=== PATIENT | male | born 1995 | race African-American/Black ===

== ENCOUNTER 2018-10-27 23:01 | Emergency (ER) | payer MEDICAID, OTHER ==
[~2018-10-27] VITALS: Ht 182.9 cm; Wt 82.0 kg
[2018-10-28] MEDS ORDERED: SODIUM CHLORIDE 0.9% 1,000 ML IV ONE (01:03)
[2018-10-28] MEDS ORDERED: BACITRACIN ZINC OINT UDPKT TOP ONE (01:15)
[2018-10-28] MEDS ORDERED: LIDOCAINE 1%/EPI 1:100,000 10 ML VIAL IJ ONE (01:15)
[2018-10-28] MEDS ORDERED: LIDOCAINE HCL/EPINEPHRINE 1%-EPI 1:100,000 20 ML VIAL ONE (02:09)
[2018-10-28] MEDS ORDERED: AMOXICILLIN/POTASSIUM CLAVULANATE 875/125MG TAB PO ONE (03:00)
[2018-10-28 03:27] VITALS: BP 148/87
== END 2018-10-28 03:30 | disposition home or self-care (01) ==
LOC: ER 23:01
DX: S61.411A Laceration without foreign body of right hand, initial encounter (principal); W26.8XXA Contact with other sharp object(s), not elsewhere classified, initial encounter; F12.10 Cannabis abuse, uncomplicated; F17.200 Nicotine dependence, unspecified, uncomplicated; Y93.89 Activity, other specified; Y92.89 Other specified places as the place of occurrence of the external cause; Y99.8 Other external cause status
CPT/HCPCS: 12032; 73130; 99284; J3490; J7030